=== PATIENT | male | born 1960 | race Caucasian/White ===

== ENCOUNTER 2020-01-02 19:25 | Emergency (ER) | payer OTHER ==
[2020-01-02] MEDS ORDERED: ETOMIDATE 2 MG/ML 10 ML VIAL IVP STA (19:28)
[2020-01-02] MEDS ORDERED: ROCURONIUM BROMIDE 10 MG/ML 5 ML VIAL IV STA (19:28)
[2020-01-02] MEDS ORDERED: SODIUM CHLORIDE 0.9% 1,000 ML IV ONE ×3 (19:30→20:40)
[2020-01-02] MEDS ORDERED: EPINEPHrine 10 ML SYRINGE (0.1 MG/ML) ONE (19:45)
[2020-01-02] MEDS ORDERED: SODIUM BICARB 8.4% 50 ML SYR (1 MEQ/ML) ONE (19:45)
[2020-01-02] MEDS ORDERED: CALCIUM CHLORIDE 100 MG/ML 10 ML SYRINGE ONE (19:45)
[2020-01-02 20:00] LABS: Glucose,Whole Blood 128 mg/dL (75-99)
[2020-01-02 20:00] LABS: Glucose,Whole Blood 129 mg/dL (75-99)
[2020-01-02] MEDS ORDERED: EPINEPHrine 1 MG/ML 1 ML AMP IV STA (20:00)
[2020-01-02 20:13] LABS: HCT 37.5 % (39.0-53.0); HGB 11.4 gm/dL (13.0-17.5); Hypochromasia Marked; MCH 33.4 pg (25.0-35.0); MCHC 30.4 g/dL (31.0-37.0); MCV 109.9 fL (80.0-100.0); Macrocytosis Marked; Mean Platelet Volume 8.5; RBC 3.41 m/uL (4.30-5.90); RDW 15.7 % (11.5-15.5); WBC 3.3 k/uL (3.8-10.6)
[2020-01-02 20:15] LABS: INR 1.4 (<1.2); Partial Thromboplastin Time 27.1 sec (22.0-30.0); Platelet Count 68 k/uL (150-450); Prothrombin Time 13.6 sec (9.0-12.0)
[2020-01-02] MEDS: EPINEPHrine 1 MG/ML 1 ML AMP IV PRN ×4 (20:16→20:35)
[2020-01-02 20:20] LABS: Albumin 2.9 g/dL (3.5-5.0); Potassium 4.3 mmol/L (3.5-5.1); Total Bilirubin 1.3 mg/dL (0.2-1.3); Total Protein 5.1 g/dL (6.3-8.2)
[2020-01-02 20:29] LABS: Creatine Kinase MB 1.2 ng/mL (0.0-2.4); Troponin I 0.013 ng/mL (0.000-0.034)
[2020-01-02 20:31] LABS: Band Neutrophils % 4 %; Lymphocytes # (M) 1.45 k/uL (1.0-4.8); Metamyelocytes # (M) 0.03 k/uL (0); Metamyelocytes % 1 %; Monocytes # (M) 0.17 k/uL (0-1.0); Neutrophils % (M) 46 %; Nucleated Red Blood Cells 0 /100 WBC (0-0); Total Cells Counted 100
--- NOTE | 2020-01-02 20:31 | XR ---
EXAMINATION TYPE: XR chest 1V portable DATE OF EXAM: 01/02/2020 COMPARISON: NONE HISTORY: Chest pain. Fell down the stairs. TECHNIQUE: Single view FINDINGS: Endotracheal tube is 3 cm from the angela. Lungs are clear of infiltrate. There is no heart failure. There is no pleural effusion. There is no sign of pleural effusion or pneumothorax. There a re chest leads. IMPRESSION: No active cardiopulmonary disease.
[2020-01-02 20:38] LABS: Calcium 13.4 mg/dL (8.4-10.2)
--- NOTE | 2020-01-02 20:42 | CT ---
EXAMINATION TYPE: CT brain kelly thapa DATE OF EXAM: 01/02/2020 COMPARISON: None HISTORY: Fall down stairs this morning. Right frontal injury. Pupils fixed and dilated. CT DLP: 1844 mGycm Automated exposure control for dose reduction was used. There is mild cerebral cortical atrophy. There is no mass effect nor midline shift. There is no sign of intracranial hemorrhage. There is right frontal scalp hematoma that measures up to 1 cm in thickne ss. There is no evidence of a skull fracture. Cervical vertebra have fairly normal spacing and alignment. Posterior elements are intact. Facet join ts appear normal. There is no evidence of cervical spine fracture. Skull base is intact. There is nor mal aeration of the temporal bones. Endotracheal tube is noted. IMPRESSION: Right frontal scalp hematoma. Cerebral atrophy. No acute intracranial abnormality. Negative CT scan cervical spine. No fracture.
--- NOTE | 2020-01-02 20:43 | XR ---
EXAMINATION TYPE: XR pelvis AP view DATE OF EXAM: 01/02/2020 COMPARISON: NONE HISTORY: Pain TECHNIQUE: Single view FINDINGS: Pelvic ring is intact. Proximal femurs and hip joints are intact. Sacroiliac joints appear normal. There is no evidence of a fracture. IMPRESSION: Negative exam. No fracture seen.
[2020-01-02] MEDS ORDERED: NOREPINEPHRINE 32 MG in SODIUM CHLORIDE 0.9% 218 ML IV SCH (20:45)
--- NOTE | 2020-01-02 21:05 | P.GSCN ---
History of Present Illness Consult date: 01/02/20 Reason for Consult: Priority 1 trauma History of present illness: 59-year-old male was found by his family around 6:15 to 6:30 PM this evening. He apparently lives in the basement of his sister's home after recent released from half-way. Patient resumed his heavy alcohol use following his release. The [id number] was going into the basement to check on him when he noticed blood present on the floor of the basement and also around his bed. The patient was found laying supine and unresponsive. He had an obvious laceration to his right forehead. Again there was a fair amount of blood per the family. No other obvious injuries. He did make some attempts to sit up. He was not following commands and was nonverbal per the family. EMS was contacted. He was brought to the hospital. Initial vitals appeared fairly stable. He was taken to CAT scan and on route patient lost his vitals. CPR was initiated. Spontaneous return of pulse was identified. Has had some relative hypotension since then. CT chest and pelvis shows some subcutaneous emphysema along the anterior aspect of the chest at the level of the clavicle, no pneumothorax seen, no acute intra- abdominal injury identified on all our early review. Still waiting for official dictations on CT facial bones, CT brain, CT C-spine, chest abdomen and pelvis. FAST exam was negative. Alcohol significant elevated. Lactic acid significantly elevated. Calcium is elevated however he was just given calcium infusion during the code. GCS 3 on arrival Review of Systems ROS unobtainable: due to endotracheal tube Medications and Allergies Allergies Allergy/AdvReac Type Severity Reaction Status Date / Time No Known Allergies Allergy Verified 01/02/20 19:32 Surgical - Exam Physical exam: General: Well-developed, slightly malnourished HEENT: sclerae nonicteric, laceration through the right eyebrow 4-5 cm in length, no active bleeding, pupils fixed, trach midline, no palpable subcutaneous emphysema lower neck or chest Chest: Equal breath sounds, no obvious trauma Abdomen: Nontender, nondistended Extremities: No edema, patient cooled to touch all 4 extremities, unable to palpate dorsalis pedis or PT pulse right foot, right popliteal pulse palpable, distal pulses identified and all other extremities, no obvious recent trauma with the exception of some old bruising right thigh Neuro: GCS 3 Results - Labs 01/02/20 20:00 01/02/20 20:00 Abnormal Lab Results - Last 24 Hours (Table) 01/02/20 01/02/20 01/02/20 Range/Units 19:30 19:50 20:00 WBC 3.3 L (3.8-10.6) k/uL RBC 3.41 L (4.30-5.90) m/uL Hgb 11.4 L (13.0-17.5) gm/dL Hct 37.5 L (39.0-53.0) % MCV 109.9 H (80.0-100.0) fL MCHC 30.4 L (31.0-37.0) g/dL RDW 15.7 H (11.5-15.5) % Plt Count 68 L (150-450) k/uL Metamyelocytes # (Man) 0.03 H (0) k/uL Macrocytosis Marked A PT (9.0-12.0) sec INR (<1.2) Sodium (137-145) mmol/L Chloride (98-107) mmol/L Carbon Dioxide (22-30) mmol/L Creatinine (0.66-1.25) mg/dL Glucose (74-99) mg/dL POC Glucose (mg/dL) 128 H 129 H (75-99) mg/dL Plasma Lactic Acid Steve (0.7-2.0) mmol/L Calcium (8.4-10.2) mg/dL AST (17-59) U/L ALT (4-49) U/L Total Creatine Kinase (55-170) U/L Total Protein (6.3-8.2) g/dL Albumin (3.5-5.0) g/dL Serum Alcohol mg/dL 01/02/20 01/02/20 01/02/20 Range/Units 20:00 20:00 20:00 WBC (3.8-10.6) k/uL RBC (4.30-5.90) m/uL Hgb (13.0-17.5) gm/dL Hct (39.0-53.0) % MCV (80.0-100.0) fL MCHC (31.0-37.0) g/dL RDW (11.5-15.5) % Plt Count (150-450) k/uL Metamyelocytes # (Man) (0) k/uL Macrocytosis PT 13.6 H (9.0-12.0) sec INR 1.4 H (<1.2) Sodium 147 H (137-145) mmol/L Chloride 111 H (98-107) mmol/L Carbon Dioxide 10 L (22-30) mmol/L Creatinine 2.02 H (0.66-1.25) mg/dL Glucose 127 H (74-99) mg/dL POC Glucose (mg/dL) (75-99) mg/dL Plasma Lactic Acid Steve (0.7-2.0) mmol/L Calcium 13.4 H* (8.4-10.2) mg/dL AST 904 H (17-59) U/L ALT 397 H (4-49) U/L Total Creatine Kinase 185 H (55-170) U/L Total Protein 5.1 L (6.3-8.2) g/dL Albumin 2.9 L (3.5-5.0) g/dL Serum Alcohol 407 H* mg/dL 01/02/20 Range/Units 20:00 WBC (3.8-10.6) k/uL RBC (4.30-5.90) m/uL Hgb (13.0-17.5) gm/dL Hct (39.0-53.0) % MCV (80.0-100.0) fL MCHC (31.0-37.0) g/dL RDW (11.5-15.5) % Plt Count (150-450) k/uL Metamyelocytes # (Man) (0) k/uL Macrocytosis PT (9.0-12.0) sec INR (<1.2) Sodium (137-145) mmol/L Chloride (98-107) mmol/L Carbon Dioxide (22-30) mmol/L Creatinine (0.66-1.25) mg/dL Glucose (74-99) mg/dL POC Glucose (mg/dL) (75-99) mg/dL Plasma Lactic Acid Steve 16.7 H* (0.7-2.0) mmol/L Calcium (8.4-10.2) mg/dL AST (17-59) U/L ALT (4-49) U/L Total Creatine Kinase (55-170) U/L Total Protein (6.3-8.2) g/dL Albumin (3.5-5.0) g/dL Serum Alcohol mg/dL Diabetes panel 01/02/20 Range/Units 20:00 Sodium 147 H (137-145) mmol/L Potassium 4.3 (3.5-5.1) mmol/L Chloride 111 H (98-107) mmol/L Carbon Dioxide 10 L (22-30) mmol/L BUN 10 (9-20) mg/dL Creatinine 2.02 H (0.66-1.25) mg/dL Glucose 127 H (74-99) mg/dL Calcium 13.4 H* (8.4-10.2) mg/dL AST 904 H (17-59) U/L ALT 397 H (4-49) U/L Alkaline Phosphatase 66 (38-126) U/L Total Protein 5.1 L (6.3-8.2) g/dL Albumin 2.9 L (3.5-5.0) g/dL Calcium panel 01/02/20 Range/Units 20:00 Calcium 13.4 H* (8.4-10.2) mg/dL Albumin 2.9 L (3.5-5.0) g/dL Pituitary panel 01/02/20 Range/Units 20:00 Sodium 147 H (137-145) mmol/L Potassium 4.3 (3.5-5.1) mmol/L Chloride 111 H (98-107) mmol/L Carbon Dioxide 10 L (22-30) mmol/L BUN 10 (9-20) mg/dL Creatinine 2.02 H (0.66-1.25) mg/dL Glucose 127 H (74-99) mg/dL Calcium 13.4 H* (8.4-10.2) mg/dL Adrenal panel 01/02/20 Range/Units 20:00 Sodium 147 H (137-145) mmol/L Potassium 4.3 (3.5-5.1) mmol/L Chloride 111 H (98-107) mmol/L Carbon Dioxide 10 L (22-30) mmol/L BUN 10 (9-20) mg/dL Creatinine 2.02 H (0.66-1.25) mg/dL Glucose 127 H (74-99) mg/dL Calcium 13.4 H* (8.4-10.2) mg/dL Total Bilirubin 1.3 (0.2-1.3) mg/dL AST 904 H (17-59) U/L ALT 397 H (4-49) U/L Alkaline Phosphatase 66 (38-126) U/L Total Protein 5.1 L (6.3-8.2) g/dL Albumin 2.9 L (3.5-5.0) g/dL Assessment and Plan (1) Fall Narrative/Plan: 59-year-old male prior to 1 trauma for fall. Await completion of workup for disposition. Anticipate transfer for neurologic evaluation and further workup. Will place central line at this time Current Visit: Yes Status: Acute Code(s): W19.XXXA - UNSPECIFIED FALL, INITIAL ENCOUNTER SNOMED Code(s): 7771869
--- NOTE | 2020-01-02 21:06 | P.PCN ---
Date of Procedure: 01/02/20 Procedure(s) Performed: PREOPERATIVE DIAGNOSIS: Hypotension POSTOPERATIVE DIAGNOSIS: Same PROCEDURE: Right femoral central line placement SURGEON: Karen EBL: 2 mL ANESTHESIA: None COMPLICATIONS: None OPERATIVE PROCEDURE: The patient kept on The ER Gur[facility]. Right Groin Prepped Sterilely. Seldinger Needle Used To Access Right Femoral Vein. Wire Advanced without Difficulty. Dilator Utilized. Triple Lumen Catheter Threaded over the Guidewire. Guidewire Removed. All 3 Ports Flushed. Catheter Sutured to Skin Using 3-0 Silk Sutures. Sterile Dressing Applied. DISPOSITION: Stable to recovery room
--- NOTE | 2020-01-02 21:21 | ED ---
Altered Mental Status HPI - General Chief Complaint: Altered Mental Status Stated Complaint: Fall Time Seen by Provider: 01/02/20 19:25 Source: EMS Mode of arrival: EMS - History of Present Illness Initial Comments: The patient is a 59-year-old male with no past medical history of present to the emergency department as a priority 1 trauma. The patient was found down next to his bed covered in blood. He was last seen by family members at 10:30 AM this morning. They state that he has a history of drinking. He was well at that time. They then found him down, covered in blood. They thought maybe he fell into an aquarium and hit his face. The patient had a laceration noted over his right eyebrow and right cheek. GCS was 3. Patient arrives unable to answer any questioning therefore the HPI is limited - Related Data Allergies Allergy/AdvReac Type Severity Reaction Status Date / Time No Known Allergies Allergy Verified 01/02/20 19:32 Review of Systems ROS Statement: Those systems with pertinent positive or pertinent negative responses have been documented in the HPI. ROS Other: All systems not noted in ROS Statement are negative. General Exam Limitations: altered mental status General appearance: obtunded, other (no response to painful stimuli) Head exam: Present: other (head trauma noted - patient has 2 abrasions - one over right cheek and one over right eye) Eye exam: Present: other (pupils 4 mm and fixed. No hyphema or proptosis) ENT exam: Present: mucous membranes dry Neck exam: Present: other (patient placed in c-collar) Respiratory exam: Present: other (patient is being assisted by bagged ventilation. Respirations are shallow and only 4-6/min) Cardiovascular Exam: Present: tachycardia GI/Abdominal exam: Present: distended, other (firm). Absent: bruit, pulsatile mass Rectal exam: Present: normal inspection exam: Present: normal inspection Extremities exam: Present: other (patient is not moving any of his extremities spontanously. No notable joint swelling) Back exam: Present: other (ecchymosis over the right posterior chest wall and right buttock) Neurological exam: Present: altered, other (unresponsive to painful stimuli. Slow spontanous respirations. Does not follow any commands. Patient non verbal. No gag reflex noted when intubated) Skin exam: Present: pallor Course Vital Signs 01/02/20 01/02/20 01/02/20 20:24 20:26 20:28 Temperature Pulse Rate 90 91 91 Respiratory 16 16 16 Rate Blood Pressure 50/29 52/31 66/34 O2 Sat by Pulse 99 100 99 Oximetry 01/02/20 01/02/20 01/02/20 20:30 20:32 20:34 Temperature Pulse Rate 92 91 91 Respiratory 16 16 16 Rate Blood Pressure 61/36 54/30 57/39 O2 Sat by Pulse 99 100 98 Oximetry 01/02/20 01/02/20 01/02/20 20:36 20:38 20:40 Temperature Pulse Rate 91 90 90 Respiratory 21 16 16 Rate Blood Pressure 54/38 57/38 60/37 O2 Sat by Pulse 98 99 99 Oximetry 01/02/20 01/02/20 01/02/20 20:42 20:44 20:46 Temperature Pulse Rate 90 88 87 Respiratory 16 16 16 Rate Blood Pressure 60/33 60/33 61/31 O2 Sat by Pulse 99 98 98 Oximetry 01/02/20 01/02/20 01/02/20 20:48 20:50 20:52 Temperature Pulse Rate 86 86 85 Respiratory 16 16 16 Rate Blood Pressure 60/37 57/37 55/36 O2 Sat by Pulse 97 97 98 Oximetry 01/02/20 01/02/20 01/02/20 20:54 20:56 20:58 Temperature Pulse Rate 85 84 83 Respiratory 16 16 16 Rate Blood Pressure 57/35 57/33 51/35 O2 Sat by Pulse 98 98 100 Oximetry 01/02/20 01/02/20 01/02/20 21:00 21:02 21:04 Temperature Pulse Rate 82 81 80 Respiratory 16 16 16 Rate Blood Pressure 52/35 50/37 58/34 O2 Sat by Pulse 98 100 99 Oximetry 01/02/20 01/02/20 01/02/20 21:06 21:08 21:10 Temperature Pulse Rate 80 80 79 Respiratory 16 16 16 Rate Blood Pressure 57/31 53/35 55/34 O2 Sat by Pulse 99 99 100 Oximetry 01/02/20 01/02/20 01/02/20 21:12 21:14 21:16 Temperature Pulse Rate 79 78 78 Respiratory 16 16 16 Rate Blood Pressure 57/29 58/33 58/32 O2 Sat by Pulse 99 100 100 Oximetry 01/02/20 01/02/2020 21:18 21:20 21:22 Temperature Pulse Rate 79 80 81 Respiratory 16 16 16 Rate Blood Pressure 63/34 74/43 87/56 O2 Sat by Pulse 100 100 100 Oximetry 01/02/20 01/02/20 01/02/20 21:24 21:26 21:28 Temperature Pulse Rate 81 81 82 Respiratory 16 16 16 Rate Blood Pressure 100/58 105/58 108/59 O2 Sat by Pulse 100 100 100 Oximetry 01/02/20 01/02/20 01/02/20 21:32 21:42 21:48 Temperature Pulse Rate 84 87 90 Respiratory 17 18 19 Rate Blood Pressure 119/67 127/77 117/79 O2 Sat by Pulse 100 99 100 Oximetry 01/02/20 21:50 Temperature 97.6 F Pulse Rate 91 Respiratory 18 Rate Blood Pressure 125/80 O2 Sat by Pulse 100 Oximetry Procedures - Intubation Sedative: Etomidate Mg Given: 10 Paralytic: Rocuronium Mg Given: 50 Laryngoscope: fiber optic video scope Size: 4 ET Tube Size: 7.5 ET Tube Uncuffed: No Tube Secured Depth (cm): 25 Tube Secured Location: lips Tube Placement Confirmation: visualized tube passing through cords, equal breath sounds bilaterally, no breath sounds over epigastrium, confirmation by capnometry Patient Tolerated Procedure: well Intubation Complications: none Medical Decision Making - Medical Decision Making Upon arrival the patient is placed in the trauma bay 1. He is a priority [address] Jones does present to the emergency department. Initial assessment demonstrates a GCS of 3. Pupils are 4 mm and fixed. Patient has notable head trauma and is covered in blood. Patient does have bilateral breath sounds. Patient is intubated due to airway protection and low GCS. Chest and pelvic x-ray performed which demonstrates appropriate placement of ET tube. Blood pressures are noted to be 90 systolic. Patient mildly tachycardic. 12-lead EKG performed. PIV is established and the patient is started on a 2 L bolus of normal saline. CT of the brain, chest and pelvis are ordered and at tempted after patient has protected airway however prior to the patient going over he does have widening of his QRS and patient becomes pulseless. Because of this we did give him a gram of calcium chloride and an amp of sodium bicarb. Accu-Chek is performed and is normal. The patient is given 1 mg of epi. One round of compressions is performed we do obtain pulses back. Repeat EKG is performed which demonstrates a narrow complex rhythm. The patient is then given several doses of push dose epi to maintain a map of 65. Dr. Jones does place a femoral central line in the patient and he is placed on quad strength levo because of his hypotension. He does go over for CT of the brain, cervical spine, chest abdomen pelvis. No acute incranial bleed or cervical fractures. No acute findings in the chest, abdomen, pelvis. Lab studies are conducted. Platelets are 68. Creatinine 2. Lactic acid 16.7. Liver enzymes are elevated. Alcohol level 407. I discussed transferred to [facility] as this is recommended by the trauma surgeon for which he discusses this with family and they are agreeable. I called [facility] and accepting doctor is Dr. Bynum. Patient transferred in hemodynamically stable, yet critical condition - Lab Data Result diagrams: 01/02/20 20:00 01/02/20 20:00 Lab Results 01/02/20 01/02/20 01/02/20 Range/Units 19:30 19:50 20:00 WBC 3.3 L (3.8-10.6) k/uL RBC 3.41 L (4.30-5.90) m/uL Hgb 11.4 L (13.0-17.5) gm/dL Hct 37.5 L (39.0-53.0) % MCV 109.9 H (80.0-100.0) fL MCH 33.4 (25.0-35.0) pg MCHC 30.4 L (31.0-37.0) g/dL RDW 15.7 H (11.5-15.5) % Plt Count 68 L (150-450) k/uL Neutrophils % (Manual) 46 % Band Neutrophils % 4 % Lymphocytes % (Manual) 44 % Monocytes % (Manual) 5 % Metamyelocytes % 1 % Neutrophils # (Manual) 1.60 (1.3-7.7) k/uL Lymphocytes # (Manual) 1.45 (1.0-4.8) k/uL Monocytes # (Manual) 0.17 (0-1.0) k/uL Metamyelocytes # (Man) 0.03 H (0) k/uL Nucleated RBCs 0 (0-0) /100 WBC Manual Slide Review Performed Hypochromasia Marked Macrocytosis Marked A PT (9.0-12.0) sec INR (<1.2) APTT (22.0-30.0) sec Sodium (137-145) mmol/L Potassium (3.5-5.1) mmol/L Chloride (98-107) mmol/L Carbon Dioxide (22-30) mmol/L Anion Gap mmol/L BUN (9-20) mg/dL Creatinine (0.66-1.25) mg/dL Est GFR (CKD-EPI)AfAm (>60 ml/min/1.73 sqM) Est GFR (CKD-EPI)NonAf (>60 ml/min/1.73 sqM) Glucose (74-99) mg/dL POC Glucose (mg/dL) 128 H 129 H (75-99) mg/dL POC Glu Hand Heel Seat Fitter ID Veronica Hinojosa, Pradeep Lactic Ac Sepsis Rflx Plasma Lactic Acid Steve (0.7-2.0) mmol/L Calcium (8.4-10.2) mg/dL Total Bilirubin (0.2-1.3) mg/dL AST (17-59) U/L ALT (4-49) U/L Alkaline Phosphatase (38-126) U/L Total Creatine Kinase (55-170) U/L CK-MB (CK-2) (0.0-2.4) ng/mL CK-MB (CK-2) Rel Index Troponin I (0.000-0.034) ng/mL Total Protein (6.3-8.2) g/dL Albumin (3.5-5.0) g/dL Amylase (30-110) U/L Lipase (23-300) U/L Urine Color Urine Appearance (Clear) Urine pH (5.0-8.0) Ur Specific [place] (1.001-1.035) Urine Protein (Negative) Urine Glucose (UA) (Negative) Urine Ketones (Negative) Urine Blood (Negative) Urine Nitrite (Negative) Urine Bilirubin (Negative) Urine Urobilinogen (<2.0) mg/dL Ur Leukocyte Esterase (Negative) Urine RBC (0-5) /hpf Urine WBC (0-5) /hpf Ur Squamous Epith Cells (0-4) /hpf Urine Mucus (None) /hpf Urine Opiates Screen (NotDetected) Ur Oxycodone Screen (NotDetected) Urine Methadone Screen (NotDetected) Ur Propoxyphene Screen (NotDetected) Ur Barbiturates Screen (NotDetected) U Tricyclic Antidepress (NotDetected) Ur Phencyclidine Scrn (NotDetected) Ur Amphetamines Screen (NotDetected) U Methamphetamines Scrn (NotDetected) U Benzodiazepines Scrn (NotDetected) Urine Cocaine Screen (NotDetected) U Marijuana (THC) Screen (NotDetected) Serum Alcohol mg/dL Blood Type Blood Type Confirm Blood Type Recheck Bld Type Recheck Status Antibody Screen Spec Expiration Date 01/02/20 01/02/20 01/02/20 Range/Units 20:00 20:00 20:00 WBC (3.8-10.6) k/uL RBC (4.30-5.90) m/uL Hgb (13.0-17.5) gm/dL Hct (39.0-53.0) % MCV (80.0-100.0) fL MCH (25.0-35.0) pg MCHC (31.0-37.0) g/dL RDW (11.5-15.5) % Plt Count (150-450) k/uL Neutrophils % (Manual) % Band Neutrophils % % Lymphocytes % (Manual) % Monocytes % (Manual) % Metamyelocytes % % Neutrophils # (Manual) (1.3-7.7) k/uL Lymphocytes # (Manual) (1.0-4.8) k/uL Monocytes # (Manual) (0-1.0) k/uL Metamyelocytes # (Man) (0) k/uL Nucleated RBCs (0-0) /100 WBC Manual Slide Review Hypochromasia Macrocytosis PT 13.6 H (9.0-12.0) sec INR 1.4 H (<1.2) APTT 27.1 (22.0-30.0) sec Sodium 147 H (137-145) mmol/L Potassium 4.3 (3.5-5.1) mmol/L Chloride 111 H (98-107) mmol/L Carbon Dioxide 10 L (22-30) mmol/L Anion Gap 26 mmol/L BUN 10 (9-20) mg/dL Creatinine 2.02 H (0.66-1.25) mg/dL Est GFR (CKD-EPI)AfAm 41 (>60 ml/min/1.73 sqM) Est GFR (CKD-EPI)NonAf 35 (>60 ml/min/1.73 sqM) Glucose 127 H (74-99) mg/dL POC Glucose (mg/dL) (75-99) mg/dL POC Glu Hand Heel Seat Fitter ID Lactic Ac Sepsis Rflx Plasma Lactic Acid Steve (0.7-2.0) mmol/L Calcium 13.4 H* (8.4-10.2) mg/dL Total Bilirubin 1.3 (0.2-1.3) mg/dL AST 904 H (17-59) U/L ALT 397 H (4-49) U/L Alkaline Phosphatase 66 (38-126) U/L Total Creatine Kinase 185 H (55-170) U/L CK-MB (CK-2) 1.2 (0.0-2.4) ng/mL CK-MB (CK-2) Rel Index 0.6 Troponin I 0.013 (0.000-0.034) ng/mL Total Protein 5.1 L (6.3-8.2) g/dL Albumin 2.9 L (3.5-5.0) g/dL Amylase 32 (30-110) U/L Lipase 275 (23-300) U/L Urine Color Urine Appearance (Clear) Urine pH (5.0-8.0) Ur Specific [place] (1.001-1.035) Urine Protein (Negative) Urine Glucose (UA) (Negative) Urine Ketones (Negative) Urine Blood (Negative) Urine Nitrite (Negative) Urine Bilirubin (Negative) Urine Urobilinogen (<2.0) mg/dL Ur Leukocyte Esterase (Negative) Urine RBC (0-5) /hpf Urine WBC (0-5) /hpf Ur Squamous Epith Cells (0-4) /hpf Urine Mucus (None) /hpf Urine Opiates Screen (NotDetected) Ur Oxycodone Screen (NotDetected) Urine Methadone Screen (NotDetected) Ur Propoxyphene Screen (NotDetected) Ur Barbiturates Screen (NotDetected) U Tricyclic Antidepress (NotDetected) Ur Phencyclidine Scrn (NotDetected) Ur Amphetamines Screen (NotDetected) U Methamphetamines Scrn (NotDetected) U Benzodiazepines Scrn (NotDetected) Urine Cocaine Screen (NotDetected) U Marijuana (THC) Screen (NotDetected) Serum Alcohol 407 H* mg/dL Blood Type Blood Type Confirm Blood Type Recheck Bld Type Recheck Status Antibody Screen Spec Expiration Date 01/02/20 01/02/20 01/02/20 Range/Units 20:00 20:00 20:38 WBC (3.8-10.6) k/uL RBC (4.30-5.90) m/uL Hgb (13.0-17.5) gm/dL Hct (39.0-53.0) % MCV (80.0-100.0) fL MCH (25.0-35.0) pg MCHC (31.0-37.0) g/dL RDW (11.5-15.5) % Plt Count (150-450) k/uL Neutrophils % (Manual) % Band Neutrophils % % Lymphocytes % (Manual) % Monocytes % (Manual) % Metamyelocytes % % Neutrophils # (Manual) (1.3-7.7) k/uL Lymphocytes # (Manual) (1.0-4.8) k/uL Monocytes # (Manual) (0-1.0) k/uL Metamyelocytes # (Man) (0) k/uL Nucleated RBCs (0-0) /100 WBC Manual Slide Review Hypochromasia Macrocytosis PT (9.0-12.0) sec INR (<1.2) APTT (22.0-30.0) sec Sodium (137-145) mmol/L Potassium (3.5-5.1) mmol/L Chloride (98-107) mmol/L Carbon Dioxide (22-30) mmol/L Anion Gap mmol/L BUN (9-20) mg/dL Creatinine (0.66-1.25) mg/dL Est GFR (CKD-EPI)AfAm (>60 ml/min/1.73 sqM) Est GFR (CKD-EPI)NonAf (>60 ml/min/1.73 sqM) Glucose (74-99) mg/dL POC Glucose (mg/dL) (75-99) mg/dL POC Glu Hand Heel Seat Fitter ID Lactic Ac Sepsis Rflx Y Plasma Lactic Acid Steve 16.7 H* (0.7-2.0) mmol/L Calcium (8.4-10.2) mg/dL Total Bilirubin (0.2-1.3) mg/dL AST (17-59) U/L ALT (4-49) U/L Alkaline Phosphatase (38-126) U/L Total Creatine Kinase (55-170) U/L CK-MB (CK-2) (0.0-2.4) ng/mL CK-MB (CK-2) Rel Index Troponin I (0.000-0.034) ng/mL Total Protein (6.3-8.2) g/dL Albumin (3.5-5.0) g/dL Amylase (30-110) U/L Lipase (23-300) U/L Urine Color Urine Appearance (Clear) Urine pH (5.0-8.0) Ur Specific [place] (1.001-1.035) Urine Protein (Negative) Urine Glucose (UA) (Negative) Urine Ketones (Negative) Urine Blood (Negative) Urine Nitrite (Negative) Urine Bilirubin (Negative) Urine Urobilinogen (<2.0) mg/dL Ur Leukocyte Esterase (Negative) Urine RBC (0-5) /hpf Urine WBC (0-5) /hpf Ur Squamous Epith Cells (0-4) /hpf Urine Mucus (None) /hpf Urine Opiates Screen (NotDetected) Ur Oxycodone Screen (NotDetected) Urine Methadone Screen (NotDetected) Ur Propoxyphene Screen (NotDetected) Ur Barbiturates Screen (NotDetected) U Tricyclic Antidepress (NotDetected) Ur Phencyclidine Scrn (NotDetected) Ur Amphetamines Screen (NotDetected) U Methamphetamines Scrn (NotDetected) U Benzodiazepines Scrn (NotDetected) Urine Cocaine Screen (NotDetected) U Marijuana (THC) Screen (NotDetected) Serum Alcohol mg/dL Blood Type O Negative Blood Type Confirm Blood Type Recheck No Previous Record Bld Type Recheck Status CABO Indicated Antibody Screen NEGATIVE Spec Expiration Date 01/05/2020229901/02/20 01/02/20 Range/Units 20:48 21:16 WBC (3.8-10.6) k/uL RBC (4.30-5.90) m/uL Hgb (13.0-17.5) gm/dL Hct (39.0-53.0) % MCV (80.0-100.0) fL MCH (25.0-35.0) pg MCHC (31.0-37.0) g/dL RDW (11.5-15.5) % Plt Count (150-450) k/uL Neutrophils % (Manual) % Band Neutrophils % % Lymphocytes % (Manual) % Monocytes % (Manual) % Metamyelocytes % % Neutrophils # (Manual) (1.3-7.7) k/uL Lymphocytes # (Manual) (1.0-4.8) k/uL Monocytes # (Manual) (0-1.0) k/uL Metamyelocytes # (Man) (0) k/uL Nucleated RBCs (0-0) /100 WBC Manual Slide Review Hypochromasia Macrocytosis PT (9.0-12.0) sec INR (<1.2) APTT (22.0-30.0) sec Sodium (137-145) mmol/L Potassium (3.5-5.1) mmol/L Chloride (98-107) mmol/L Carbon Dioxide (22-30) mmol/L Anion Gap mmol/L BUN (9-20) mg/dL Creatinine (0.66-1.25) mg/dL Est GFR (CKD-EPI)AfAm (>60 ml/min/1.73 sqM) Est GFR (CKD-EPI)NonAf (>60 ml/min/1.73 sqM) Glucose (74-99) mg/dL POC Glucose (mg/dL) (75-99) mg/dL POC Glu Hand Heel Seat Fitter ID Lactic Ac Sepsis Rflx Plasma Lactic Acid Steve (0.7-2.0) mmol/L Calcium (8.4-10.2) mg/dL Total Bilirubin (0.2-1.3) mg/dL AST (17-59) U/L ALT (4-49) U/L Alkaline Phosphatase (38-126) U/L Total Creatine Kinase (55-170) U/L CK-MB (CK-2) (0.0-2.4) ng/mL CK-MB (CK-2) Rel Index Troponin I (0.000-0.034) ng/mL Total Protein (6.3-8.2) g/dL Albumin (3.5-5.0) g/dL Amylase (30-110) U/L Lipase (23-300) U/L Urine Color Yellow Urine Appearance Cloudy (Clear) Urine pH 7.0 (5.0-8.0) Ur Specific [place] 1.009 (1.001-1.035) Urine Protein 1+ H (Negative) Urine Glucose (UA) Trace H (Negative) Urine Ketones Negative (Negative) Urine Blood Moderate H (Negative) Urine Nitrite Negative (Negative) Urine Bilirubin Negative (Negative) Urine Urobilinogen <2.0 (<2.0) mg/dL Ur Leukocyte Esterase Large H (Negative) Urine RBC 56 H (0-5) /hpf Urine WBC 76 H (0-5) /hpf Ur Squamous Epith Cells 1 (0-4) /hpf Urine Mucus Rare H (None) /hpf Urine Opiates Screen Not Detected (NotDetected) Ur Oxycodone Screen Not Detected (NotDetected) Urine Methadone Screen Not Detected (NotDetected) Ur Propoxyphene Screen Not Detected (NotDetected) Ur Barbiturates Screen Not Detected (NotDetected) U Tricyclic Antidepress Not Detected (NotDetected) Ur Phencyclidine Scrn Not Detected (NotDetected) Ur Amphetamines Screen Not Detected (NotDetected) U Methamphetamines Scrn Not Detected (NotDetected) U Benzodiazepines Scrn Not Detected (NotDetected) Urine Cocaine Screen Not Detected (NotDetected) U Marijuana (THC) Screen Not Detected (NotDetected) Serum Alcohol mg/dL Blood Type Blood Type Confirm O Negative Blood Type Recheck Bld Type Recheck Status Antibody Screen Spec Expiration Date - EKG Data EKG Comments: EKG demonstrates a sinus tachycardia with a ventricular 119. PA interval 156. QRS 136. QTC is 610. Minimal winding of the QRS. No acute ST segment elevation Critical Care Time Critical Care Time: Yes Total Critical Care Time: 55 (mins) Disposition Clinical Impression: Alcoholic intoxication, Altered mental status, Fall, Ventilator dependence, Toxic encephalopathy, Transaminitis, Hypotension, KIARA (acute kidney injury), Blunt head trauma, Facial laceration, Cardiopulmonary arrest, Lactic acidosis Disposition: OTHER INSTITUTION NOT DEFINED Condition: Critical Is patient prescribed a controlled substance at d/c from ED?: No Referrals: None,Stated [Primary Care Provider] - 1-2 days - Out of Hospital Transfer - Req. Specs Out of Hospital Transfer - Requested Specifics: Other Emergency Center ([facility])
--- NOTE | 2020-01-02 21:26 | CT ---
EXAMINATION TYPE: CT ChestAbdPelvis w con DATE OF EXAM: 01/02/2020 COMPARISON: None HISTORY: Fall down stairs this morning. Right frontal injury. Pupils fixed and dilated. CT DLP: 694 mGycm Automated exposure control for dose reduction was used. CONTRAST: Performed with IV Contrast, patient injected with 100 mL of Isovue 300. There is patchy atelectasis in the posterior lung elias. Heart size is normal. There is no pericardi al effusion. There is no pleural effusion or pneumothorax. There is some air in the right subclavian vein that could be inadvertent IV air. There is endotracheal tube. There is some retained fluid in th e thoracic esophagus. There is no mediastinal adenopathy. Thoracic aorta is intact. There is no aneur ysm or dissection. There is diffuse fatty infiltration of the liver. Gallbladder is distended and measures 4.6 cm. The s pleen is intact. Stomach is intact. There is no adrenal mass. Kidneys have normal size and contour. There are possible small bilateral re nal calculi. There is no hydronephrosis. Ureters are not dilated. There is small urinary bladder with some bladder wall thickening. There is no evidence of a pelvic ma ss. There is no free fluid in the pelvis. There is no mesenteric edema. Appendix is filled with air a nd appears normal. There is no sign of a bowel obstruction. There is no evidence of pneumoperitoneum. There is no ascites. Thoracic and lumbar spine show normal alignment. There is no compression fractu re. Bony pelvis appears intact. The hip joints are intact. Shoulder joints are intact. Ribs appear in tact. IMPRESSION: There is bilateral basilar pulmonary infiltrates and atelectasis. Distended gallbladder suggestive of gallbladder dysfunction. No dilated ducts. Fatty infiltration of the liver. Possible nonobstructing renal calculi. Venous air seen in the right subclavian vein probably from IV injection.
--- NOTE | 2020-01-02 21:29 | CT ---
EXAMINATION TYPE: CT facial bones wo con DATE OF EXAM: 01/02/2020 COMPARISON: HISTORY: Fall down stairs this morning. Right frontal injury. Pupils fixed and dilated. CT DLP: mGycm Automated exposure control for dose reduction was used. Images were obtained from the bottom of the mandible to the top of the frontal sinuses without contra st. The mandibular ring is intact. Zygomatic arches appear normal. Nasal bone is intact. The maxilla is i ntact. Orbital margins are intact. There is no evidence of retro-orbital mass. Nasal bone is intact. There i s right frontal scalp soft tissue swelling. There is no evidence of a blowout fracture. The maxilla shows no sign of a fracture. There is fairly normal aeration of the paranasal sinuses. Temporal bones show normal aeration. IMPRESSION: No fracture seen. Right frontal scalp soft tissue swelling.
[2020-01-02] MEDS ORDERED: SODIUM CHLORIDE 0.9% 1,000 ML IV SCH (21:45)
[2020-01-02 21:57] LABS: Appearance,Urine Cloudy (Clear); Bilirubin,Urine Negative (Negative); Blood,Urine Moderate (Negative); Color,Urine Yellow; Glucose,Urine (UA) Trace (Negative); Ketones,Urine Negative (Negative); Leukocyte Esterase,Urine Large (Negative); Mucus,Urine Rare /hpf; Nitrite,Urine Negative (Negative); Protein,Urine 1+ (Negative); RBC,Urine 56 /hpf (0-5); Specific Gravity,Urine 1.009 (1.001-1.035); Squamous Epithelial Cell,Urine 1 /hpf (0-4); Urobilinogen,Urine <2.0 mg/dL (<2.0); WBC,Urine 76 /hpf (0-5)
[2020-01-02 22:03] LABS: Amphetamine Screen,Urine Not Detected (NotDetected); Barbiturate Screen,Urine Not Detected (NotDetected); Benzodiazepines Screen,Urine Not Detected (NotDetected); Cocaine Screen,Urine Not Detected (NotDetected); Methadone Screen, Urine Not Detected (NotDetected); Opiate Screen,Urine Not Detected (NotDetected); Oxycodone Screen, Urine Not Detected (NotDetected); Phencyclidine Screen,Urine Not Detected (NotDetected); Tricyclic Antidepressant,Urine Not Detected (NotDetected); Urn Cannabinoid Scrn Not Detected (NotDetected)
[2020-01-02 22:18] VITALS: BP 125/80; PULSE 91; RESP 18; TEMP 97.6
== END 2020-01-02 21:50 | disposition other institution (70) ==
LOC: EC 19:25
DX: I46.9 Cardiac arrest, cause unspecified (principal); F10.129 Alcohol abuse with intoxication, unspecified; N17.9 Acute kidney failure, unspecified; G92 Toxic encephalopathy; I95.9 Hypotension, unspecified; S01.81XA Laceration without foreign body of other part of head, initial encounter; E87.2 Acidosis; R74.0 Nonspecific elevation of levels of transaminase and lactic acid dehydrogenase [LDH]; R41.82 Altered mental status, unspecified; S20.211A Contusion of right front wall of thorax, initial encounter; S30.0XXA Contusion of lower back and pelvis, initial encounter; Z99.11 Dependence on respirator [ventilator] status; W19.XXXA Unspecified fall, initial encounter
CPT/HCPCS: 36415; 86900; 86901; 80053; 82150; 82550; 82553; 83605; 83690; 84484; 85025; 85610; 85730; 86850; 81001; 80306; 80320; 72170; 71045; 72125; 70486; 70450; 71260; 74177; 99291; 92950; 31500; 36556; 96365; 96375; 96376; 96361 ×2; J0171; Q9967; 94002